=== PATIENT | female | born 1970 | race Caucasian/White ===

== ENCOUNTER 2019-12-08 14:36 | Emergency (ER) | payer OTHER ==
[~2019-12-08] VITALS: Ht 165.1 cm; Wt 108.9 kg
[2019-12-08] MEDS ORDERED: MOBIC15 MG PO (17:07)
[2019-12-08 17:11] VITALS: BP 138/88
== END 2019-12-08 17:12 | disposition home or self-care (01) ==
LOC: ER 14:36
DX: M19.032 Primary osteoarthritis, left wrist (principal); Z76.0 Encounter for issue of repeat prescription